=== PATIENT | male | born 1960 | race Caucasian/White ===

== ENCOUNTER 2016-10-29 17:16 | Emergency (ER) | payer OTHER ==
[~2016-10-29] VITALS: Ht 175.3 cm; Wt 102.7 kg
[2016-10-29 17:59] LABS: HEMATOCRIT 46.1 % (38.0-50.0); MCH 31.7 PG (29.0-34.0); MCHC 34.7 G/DL (30.0-36.0); MCV 91.5 FL (86-99); MEAN PLAT.VOLUME 9.5 uM^3 (9.0-12.4); PLATELET COUNT 205 K/uL (156-360); RBC DIS.WIDTH-CV 11.4 % (11.8-14.6); RBC DIS.WIDTH-SD 38.6 % (39-53); RED BLOOD COUNT 5.04 M/uL (4.00-5.50); WHITE BLOOD COUNT 14.4 K/uL (4.1-10.2)
[2016-10-29 18:12] LABS: CHLORIDE 105 mEq/L (99-109); SODIUM 140 mEq/L (136-147)
[2016-10-29 18:14] LABS: GLUCOSE 115 mg/dL (70-99)
[2016-10-29 18:15] LABS: ANION GAP 11 MEQ/L (2-14)
[2016-10-29 18:18] LABS: UREA NITROGEN (BUN) 16 mg/dL (9-23)
[2016-10-29 18:19] LABS: GFR ESTIMATE (CALCULATED) > 59 mL/min/
[2016-10-29 18:21] LABS: TROP-I INTERPRETATION NEGATIVE; TROPONIN-I < 0.01 ng/mL (0.0-0.30)
[2016-10-29 20:00] VITALS: BP 132/96
[2016-10-29] MEDS ORDERED: PERCOCET 5/31 TABLET PO (21:58)
[2016-10-29] MEDS ORDERED: LEVAQUIN750 MG PO (21:58)
[2016-11-06] MEDS ORDERED: ATENOLOL25 MG PO (09:38)
[2016-11-06] MEDS ORDERED: LOSARTAN POTAS100 MG PO (09:38)
== END 2016-10-29 22:17 | disposition home or self-care (01) ==
LOC: EME 17:16
DX: R07.9 Chest pain, unspecified (principal); R91.8 Other nonspecific abnormal finding of lung field; J90 Pleural effusion, not elsewhere classified; F17.200 Nicotine dependence, unspecified, uncomplicated; R63.4 Abnormal weight loss
CPT/HCPCS: 71020; 71250; 74177; 80048; 83605; 84484; 85027; 93005; 99281; 99284; J7030

== ENCOUNTER → 2016-11-10 | Outpatient (CLI) | payer OTHER ==
[~2016-11-10] VITALS: Ht 175.3 cm; Wt 99.8 kg
[~2016-11-10] MED LIST: ATENOLOL25 MG PO; LEVAQUIN750 MG PO; LOSARTAN POTAS100 MG PO; PERCOCET 5/31 TABLET PO
[2016-11-10 10:20] LABS: INTER. NORMALIZED RATIO 1.1; PROTHROMBIN TIME 10.7 (9.2-11.2); PTT 27.3 (25-32)
== END | disposition home or self-care (01) ==
LOC: OPR 09:32 → EDSTATUS 10:00 → OPR 10:00
PROVIDERS: Internal Medicine Hematology & Oncology
PROC: BB24ZZZ Computerized Tomography (CT Scan) of Bilateral Lungs (ICD-10-PCS; principal; 2016-11-10)
DX: J90 Pleural effusion, not elsewhere classified (principal); R91.8 Other nonspecific abnormal finding of lung field; Z53.09 Procedure and treatment not carried out because of other contraindication; I10 Essential (primary) hypertension
CPT/HCPCS: 71250; 85610; 85730; J3010